=== PATIENT | female | born 1995 | race African-American/Black ===

== ENCOUNTER 2018-06-25 12:53 | Emergency (ER) | payer MEDICAID ==
[~2018-06-25] VITALS: Ht 157.5 cm; Wt 61.0 kg
[2018-06-25 13:48] VITALS: BP 113/80
== END 2018-06-25 17:00 | disposition home or self-care (01) ==
LOC: ER 12:53
DX: M79.18 Myalgia, other site (principal); J45.909 Unspecified asthma, uncomplicated; V49.88XA Car occupant (driver) (passenger) injured in other specified transport accidents, initial encounter; Y93.89 Activity, other specified; Y92.89 Other specified places as the place of occurrence of the external cause; Y99.8 Other external cause status
CPT/HCPCS: 99282